=== PATIENT | female | born 1955 | race Caucasian/White ===

== ENCOUNTER → 2018-05-06 | Outpatient (CLI) | payer OTHER ==
[~2018-05-06] MED LIST: CENESTIN OR; JUICE PLUS; LIPITOR10 MG OR
== END ==
LOC: HYPER 04-27 10:04
DX: S81.011A Laceration without foreign body, right knee, initial encounter (principal); E78.5 Hyperlipidemia, unspecified; R73.9 Hyperglycemia, unspecified; Z87.891 Personal history of nicotine dependence; X58.XXXA Exposure to other specified factors, initial encounter; Y93.89 Activity, other specified; Y92.89 Other specified places as the place of occurrence of the external cause; Y99.8 Other external cause status

== ENCOUNTER → 2018-05-20 | Outpatient (CLI) | payer OTHER | LOC: HYPER 06:19 | DX: S81.801A Unspecified open wound, right lower leg, initial encounter (principal); E78.5 Hyperlipidemia, unspecified; Z87.891 Personal history of nicotine dependence; W20.8XXA Other cause of strike by thrown, projected or falling object, initial encounter; Y93.55 Activity, bike riding; Y92.828 Other wilderness area as the place of occurrence of the external cause; Y99.8 Other external cause status ==